=== PATIENT | female | born 1970 | race Caucasian/White ===

== ENCOUNTER 2021-08-16 07:40 | Outpatient (CLI) | payer OTHER | END 2021-08-16 07:54 | disposition home or self-care (01) | LOC: SONOGRAMA 07:40 | PROVIDERS: ATTEND Physical Medicine & Rehabilitation | DX: M51.37 Other intervertebral disc degeneration, lumbosacral region (principal); M47.817 Spondylosis without myelopathy or radiculopathy, lumbosacral region; M16.0 Bilateral primary osteoarthritis of hip; M50.30 Other cervical disc degeneration, unspecified cervical region; M51.34 Other intervertebral disc degeneration, thoracic region; M19.012 Primary osteoarthritis, left shoulder; M75.52 Bursitis of left shoulder ==